=== PATIENT | male | born 1940 | race Caucasian/White ===

== ENCOUNTER 2016-05-13 06:15 | Day surgery (SDC) | payer MEDICARE ==
[2016-05-13] VITALS (11 sets, daily range): BP systolic 122–155; BP diastolic 41–57; PULSE 56–60; RESP 9–26; O2SAT 93–98
[~2016-05-13] VITALS: Ht 180.3 cm; Wt 93.7 kg
[~2016-05-13 06:15] MED LIST: ASPI-973 PO; HYG25 PO; LIP40 PO; LISI-567 PO; Lactated Ringer's 1,000 ML IV SCH; METO25TA6 PO; MULT-1018 PO
[2016-05-13] MEDS ORDERED: Ondansetron 2 mg/mL 2 mL Inj ONE (06:16)
[2016-05-13] MEDS ORDERED: Propofol 10,000 mCg/mL 20 mL Inj ONE (06:16)
[2016-05-13] MEDS ORDERED: fentaNYL-PF 50 mCg/mL 2 mL Inj ONE (06:16)
[2016-05-13] MEDS ORDERED: Lactated Ringer's 1,000 ML IV ONE (06:56)
[2016-05-13] MEDS ORDERED: HYDROcodone-APAP 5-325 mg Tablet PO PRN (07:30)
--- NOTE | 2016-05-13 08:05 | PCM.HPANE ---
Patient Data Date of Service: May 13, 2016 Surgeon Admitting Provider: Attending Provider:Kt Arguello DO Primary Care Physician:Landon Freeman MD Other Provider:Anupam Oneill Anesthesia Reason for Visit Left Cubital Tunnel Syndrome Ht/WT & BMI Height (Feet): 5 Height (Inches): 11.00 Weight (Kilograms): 93.710 Body Mass Index 28.00 Allergies Coded Allergies: No Known Allergies (Verified Allergy, Unknown, 08/17/13) Past Anesthesia History Anesthesia History: Denies:: Abnormal Airway, Anesthesia Reactions, Difficult Intubation, Fam Anesthesia Reaction, Fam Malignant Hypertherm, Malignant Hyperthermia Diabetes History Hx Diabetes?: No MRSA MRSA: No Medications Blood Thinner: Aspirin Hypertension Medication: Yes Home Meds Incl Beta Darvin: Yes (Metoprolol) Date Beta Darvin Taken: May 12, 2016 Time Beta Darvin Taken: 2129 Reported Medications Multivitamin (Multi Vitamin Daily)1 Each Tablet1 Each PO DAILY 30 Days Ref 0 05/11/16 Metoprolol Tartrate 25 Mg Ejiwzw58.5 Mg PO DAILY 30 Days Ref 0 05/11/16 Lisinopril 20 Mg Crcard66 Mg PO DAILY 30 Days Ref 0 05/11/16 Chlorthalidone 25 Mg Obfdct67 Mg PO DAILY #30 TABLET 05/11/16 Atorvastatin (Lipitor)40 Mg Lbrull39 Mg PO DAILY Ref 0 05/11/16 Aspirin 81 Mg Ofebnk60 Mg PO DAILY Ref 0 05/11/16 Discontinued Reported Medications Lisinopril 20 Mg Lsleil84 Mg PO DAILY 30 Days Ref 0 08/17/13 Atenolol 50 Mg Placmd34 Mg PO DAILY #30 TABLET Ref 0 08/17/13 History HEENT History: Positive for:: Cataracts (bilateral) Denies:: Abnormal Airway Difficult Intubation Dysphagia Hearing Problem Sinus Problem TMJ Denture Type: Partial- Upper Partial- Lower Hx of Heart Problems?: Yes Cardiovascular History: Positive for:: Coronary Artery Disease Hypertension Irregular Heartbeat (heart block) Denies:: AICD Congestive Heart Failure Heart Murmur Pacemaker Peripheral Vascular Rheumatic Fever Thrombophlebitis Other Cardiac History: hx carotid stenosis Other History/Comments Aortic dilation Hx of Respiratory Problem?: No Respiratory History: Denies:: Asthma COPD Chest Surgery Dyspnea Emphysema Oxygen Administration Pneumonia Tuberculosis Use of C-PAP Machine Use of Inhalers / NEBS Hx Neurologic Problems?: Yes Neurological History: Positive for:: CVA (per pt hx of "mini" strokes- unknown date, no residuals) Denies:: Dementia Dizziness Headaches Multiple Sclerosis Parkinson's Disease Seizures TIA Hx of GI Problems?: No Gastrointestinal History: Denies:: Cirrhosis Gall Bladder Disease Gastroesphageal Reflux Gastrointestinal Bleeding Hiatal Hernia Hx of Problems?: No Genitourinary History: Denies:: Kidney Stones Urinary Tract Infection Male Hx: Denies:: Prostate Problems Skin History: Denies:: History Skin Disorders? 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 Denies:: Blood Transfusions Hx Diabetes: No Hx Alcohol Use: YesAlcoholic Drinks Per Day: once monthlyHx Substance Use: No Smoking Status: Former Smoker Have You Smoked inLast 12 mo: No Stop/Bang S-Snoring: Do You Snore Loudly: No T-Tired: feel tired, fatigued: No O-Obsered: Observed not breath: No P-Blood Pressure: treated: Yes B- Body Mass Index > 35 kg/m2: No A- Age over 50: Yes N- Neck Large Circumference: No G- Gender Male: Yes DEVAN Total Score: 3 DEVAN Risk Assessment: Low Risk, <3 Yes Risk Assessment Category Category 1A: Patient has history of documented sleep apnea, and HAS NOT received any narcotic, sedative or anesthesia administration during this stay. Category 1B: Patient has history of documented sleep apnea, and HAS received any narcotic , sedative or anesthesia administration during this stay Category 2: Patient has SUSPECTED Obstructive Sleep Apnea, and HAS received any narcotic , sedative or anesthesia administration during this stay. Category 3: Patient has SUSPECTED Obstructive Sleep Apnea and HAS NOT received narcotic, sedative or anesthesia administration during this stay. Category 4: Outpatient in Procedural Areas with known sleep apnea or who screen positive for High Risk via the STOP/BANG questionnaire. Exam Exam Vital Signs Vital Signs Date Time Temp Pulse Resp B/P Pulse Ox O2 Delivery O2 Flow Rate FiO2 05/13/16 06:46 35.2 60 17 140/55 96 Room Air General Appearance: Alert, Oriented X3, Cooperative, No Acute Distress HEENT/AIRWAY: MP 3, Neck Movement (normal), Mouth Opening (normal), Other ( dentures) Lungs: Clear to Auscultation, Normal Air Movement Heart: Exam Unremarkable, Regular Rate/Rhythm, No Murmurs/Rubs/Gallops Meds/Labs/Diagnostics Admission Meds Current Medications Lactated Ringer's (Lr) 1,000 ml @ ud STK-MED ONCE IV Last administered on 05/13t 06:56; Start 05/13/16 at 06:56; Stop 05/13/16 at 06:57; Status DC Diagnositcs echo, nuc med scan reviewed Plan Impression Patient chart reviewed, patient interviewed and anesthestic plan with risks, benefits, and alternatives discussed, and informed consent obtained. NPO Status: 05/12@2130 ASA Physical Status: ASA3 Severe Disease Anesthetic Plan: GA Bene/Risks/Altern/Consents: Yes HP Complete Prior to Induction: Yes John Avendaño MD May 13, 2016 08:05
[2016-05-13] MEDS ORDERED: Lidocaine 1%-Epi 1:100,000 20 mL Inj INFILTRATE ONE (08:15)
[2016-05-13] MEDS ORDERED: Lactated Ringer's 1,000 ML IV SCH (08:21)
[2016-05-13] MEDS ORDERED: Lactated Ringer's 500 ML IV PRN (08:21)
[2016-05-13] MEDS ORDERED: HYDROmorphone 1 mg/mL Inj IVPUSH PRN (08:25)
[2016-05-13] MEDS ORDERED: MetoCLOpramide 5 mg/mL 2 mL Inj IVPUSH PRN (08:25)
[2016-05-13] MEDS ORDERED: Phenylephrine 10,000 mCg/mL Inj IVPUSH PRN (08:25)
[2016-05-13] MEDS ORDERED: Ondansetron 2 mg/mL 2 mL Inj IVPUSH PRN (08:25)
[2016-05-13] MEDS ORDERED: Dexamethasone 4 mg/mL Inj IVPUSH PRN (08:25)
[2016-05-13] MEDS ORDERED: fentaNYL-PF 50 mCg/mL 2 mL Inj IVPUSH PRN (08:25)
[2016-05-13] MEDS ORDERED: EPHEDrine Sulfate 50 mg/mL Inj IVPUSH PRN (08:25)
--- NOTE | 2016-05-13 09:03 | PCM.ANEP1 ---
Post Anesthesia Phase 1 PACU Phase 1 Assessment Date of Service: May 13, 2016 Vital Signs 36.2 134/51 60 14 92% RA Anesthetic Administered: GA Level of Alertness: Sleepy, easy to arouse ARREDONDO's with Equal Strength: Yes Pain: No Nausea or Vomiting: No Oxygen Delivery: Room Air Lungs: Clear to Auscultation, Normal Air Movement John Avendaño MD May 13, 2016 09:02
--- NOTE | 2016-05-13 10:22 | PCM.ANEP2 ---
Post Anesthesia Evaluation ASA/CMS Post Anesthesia Date of Service: May 13, 2016 VS in Patient's Normal Range?: Yes Resp Stable; Airway Patent?: Yes CV Function & Hydration Stable: Yes Mental Status Recovered?: Yes Pain control Satisfactory?: Yes N/V Control Satisfactory?: Yes John Avendaño MD May 13, 2016 10:22
--- NOTE | 2016-05-14 19:06 | OP ---
[address] [address] OPERATIVE REPORT PATIENT: GEORGES POST : 1940 MR#: [id number] ADMIT: 05/13/2016 JOB ID: [id number] DATE OF SURGERY: 05/13/2016 PREOPERATIVE DIAGNOSIS(ES): Left cubital tunnel syndrome. POSTOPERATIVE DIAGNOSIS(ES): Left cubital tunnel syndrome. PROCEDURE: Left cubital tunnel decompression. SURGEON: Kt Arguello DO. ANESTHESIA: General. HISTORY: The patient is a pleasant, 76-year-old male that presented to me with numbness and tingling to his ring and small finger with progressive atrophy. 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 With failure conservative treatment and the amount of atrophy that was present, I discussed with the patient the risks, benefits, and indications to proceed with a left cubital tunnel decompression versus ulnar nerve transposition pending disability of the ulnar nerve intraoperatively. He understood the risks include, but are not limited to, neurovascular injury, tendon injury, infection, failure of fixation, stiffness, persistent pain which may require further intervention. Patient had all questions answered. Consent was signed and placed in chart. PROCEDURE IN DETAIL: The patient was brought to the operative suite and placed supine on the operating table. Surgical time-out was performed. Everybody in the room was in agreement. After appropriate anesthesia was obtained, a left upper arm tourniquet was applied, and the left upper extremity was prepped and draped in sterile fashion. Left upper extremity was then exsanguinated and the tourniquet inflated to 250 mmHg. A 5 cm curvilinear incision was made along the course of the ulnar nerve within the cubital tunnel. Dissection was carried down to the cubital tunnel taking care to protect any branches of the medial antebrachial cutaneous nerves that were identified distally at the distal aspect of the incision. The ulnar nerve was identified just proximal to the cubital tunnel and decompress as far proximal to the level of the medial intermuscular septum. Dissection was carried distally and anconeus epitrochlearis was also identified which sat overlying the cubital tunnel. The anconeus epitrochlearis was also released and dissection was also carried down distally to decompress the ulnar nerve further completing the decompression by releasing deep fascia of the flexor carpi ulnaris. The patient's elbow was then brought through a full functional range of motion. No subluxation of the ulnar nerve was identified. The left elbow wound was then copiously irrigated. Subcutaneous tissues closed with Vicryl and a running nylon for the skin. The patient was then placed in a bulky soft dressing. ESTIMATED BLOOD LOSS: Less than 1 cc. COMPLICATIONS: None. DISPOSITION: The patient tolerated the procedure well. Anesthesia was reversed and the patient was transferred to the PACU for recovery. POSTOPERATIVE PLAN: The patient will follow up in the office in two weeks. We will remove the patient's sutures at that time and have her start working on range of motion and scar mobilization.
== END 2016-05-13 23:59 | disposition home or self-care (01) ==
LOC: SAS 06:15
PROVIDERS: ATTEND Orthopaedic Surgery
DX: G56.22 Lesion of ulnar nerve, left upper limb (principal); I10 Essential (primary) hypertension; D50.9 Iron deficiency anemia, unspecified; I35.1 Nonrheumatic aortic (valve) insufficiency; I25.2 Old myocardial infarction; I77.9 Disorder of arteries and arterioles, unspecified; I70.90 Unspecified atherosclerosis; I44.0 Atrioventricular block, first degree; I77.810 Thoracic aortic ectasia; Z87.891 Personal history of nicotine dependence; Z79.82 Long term (current) use of aspirin
CPT/HCPCS: 64718; J2405; J3010; J7120

== ENCOUNTER 2016-10-05 14:31 | Day surgery (SDC) | payer MEDICARE ==
[2016-10-05] VITALS (15 sets, daily range): BP systolic 90–175; BP diastolic 32–96; PULSE 68–93; RESP 15–32; O2SAT 93–100
[~2016-10-05] VITALS: Ht 180.3 cm; Wt 86.0 kg
[~2016-10-05 14:31] MED LIST changes: +CeFAZolin 2 Gm/50 mL D5W IV Premix IV SCH
[2016-10-05] MEDS ORDERED: Phenylephrine/NS 100 mCg/mL 10 mL Syringe IVPUSH ONE (14:32)
[2016-10-05] MEDS ORDERED: EPHEDrine/NS 5 mg/mL 5 mL Syringe ONE (14:32)
[2016-10-05] MEDS ORDERED: Propofol 10,000 mCg/mL 20 mL Inj ONE (14:32)
[2016-10-05] MEDS ORDERED: fentaNYL-PF 50 mCg/mL 2 mL Inj ONE (14:32)
[2016-10-05] MEDS ORDERED: Dexamethasone 4 mg/mL Inj ONE (14:32)
[2016-10-05 14:58] LABS: Mean Corpuscular Hemoglobin 27.2 pg (27.0-35.0); Mean Corpuscular Volume 84.4 fL (81-100)
[2016-10-05] MEDS ORDERED: Lactated Ringer's 1,000 ML IV ONE (15:24)
[2016-10-05] MEDS ORDERED: ASPI325T32 PO (15:46)
[2016-10-05] MEDS ORDERED: CeFAZolin 2 Gm/50 mL D5W Duplex Bag IV ONE (15:55)
[2016-10-05] MEDS ORDERED: HYDROcodone-APAP 7.5-325 mg Tablet PO PRN (18:40)
[2016-10-05] MEDS ORDERED: Lactated Ringer's 500 ML IV PRN (19:48)
[2016-10-05] MEDS ORDERED: Lactated Ringer's 1,000 ML IV SCH (19:48)
[2016-10-05] MEDS ORDERED: Ondansetron 2 mg/mL 2 mL Inj IVPUSH PRN (19:50)
[2016-10-05] MEDS ORDERED: MetoCLOpramide 5 mg/mL 2 mL Inj IVPUSH PRN (19:50)
[2016-10-05] MEDS ORDERED: HYDROmorphone 1 mg/mL Inj IVPUSH PRN (19:50)
[2016-10-05] MEDS ORDERED: Phenylephrine 10,000 mCg/mL Inj IVPUSH PRN (19:50)
[2016-10-05] MEDS ORDERED: fentaNYL-PF 50 mCg/mL 2 mL Inj IVPUSH PRN (19:50)
[2016-10-05] MEDS ORDERED: EPHEDrine Sulfate 50 mg/mL Inj IVPUSH PRN (19:50)
[2016-10-05] MEDS ORDERED: Dexamethasone 4 mg/mL Inj IVPUSH PRN (19:50)
--- NOTE | 2016-10-05 19:54 | PCM.HPANE ---
Patient Data Surgeon Admitting Provider: Attending Provider:Kt Arguello DO Primary Care Physician:Landon Freeman MD Other Provider:Anupam Oneill Anesthesia Reason for Visit Lt Elbow I&D Ht/WT & BMI Height (Feet): 5 Height (Inches): 11.00 Weight (Kilograms): 86.000 Body Mass Index 26.00 Allergies Coded Allergies: No Known Allergies (Verified Allergy, Unknown, 08/17/13) Past Anesthesia History Anesthesia History: Denies:: Abnormal Airway, Anesthesia Reactions, Difficult Intubation, Fam Anesthesia Reaction, Fam Malignant Hypertherm, Malignant Hyperthermia Diabetes History Hx Diabetes?: No MRSA MRSA: No Medications Blood Thinner: Aspirin Last Dose Blood Thinner: Oct 04, 2016 Home Meds Incl Beta Darvin: No Reported Medications Aspirin 325 Mg Ottdds398 Mg PO DAILY #1 BOTTLE 10/05/16 Multivitamin (Multi Vitamin Daily)1 Each Tablet1 Each PO DAILY 30 Days Ref 0 05/11/16 Lisinopril 20 Mg Ubvktv55 Mg PO DAILY 30 Days Ref 0 05/11/16 Chlorthalidone 25 Mg Klspel11 Mg PO DAILY #30 TABLET 05/11/16 Atorvastatin (Lipitor)40 Mg Zorcll96 Mg PO DAILY Ref 0 05/11/16 Discontinued Reported Medications Metoprolol Tartrate 25 Mg Dhrmve47.5 Mg PO DAILY 30 Days Ref 0 05/11/16 Aspirin 81 Mg Botrat65 Mg PO DAILY Ref 0 05/11/16 History History of ENT Problems?: No HEENT History: Positive for:: Cataracts (bilateral) Denies:: Abnormal Airway Difficult Intubation Dysphagia Hearing Problem Sinus Problem TMJ Denture Type: Full- Upper Partial- Lower Teeth Condition: Broken Teeth Hx of Heart Problems?: Yes Cardiovascular History: Positive for:: Hypertension Irregular Heartbeat (heart block) Denies:: AICD Congestive Heart Failure Heart Murmur Pacemaker Rheumatic Fever Thrombophlebitis Hx of Respiratory Problem?: No Respiratory History: Denies:: Asthma COPD Chest Surgery Dyspnea Emphysema Oxygen Administration Pneumonia Tuberculosis Use of C-PAP Machine Hx Neurologic Problems?: No Neurological History: Positive for:: CVA (per pt hx of "mini" strokes- unknown date, no residuals) Denies:: Dementia Dizziness Headaches Multiple Sclerosis Parkinson's Disease Seizures Hx of GI Problems?: No Hx of Problems?: No Genitourinary History: Denies:: Kidney Stones Urinary Tract Infection Male Hx: Denies:: Prostate Problems Scrotal Mass Testicular Surgery Skin History: Denies:: History Skin Disorders? Pressure Ulcers Hx Musculoskeletal Problems?: Yes Musculoskeletal History: Positive for:: Musculoskeletal Trauma (left cubital tunnel current admission problem) Denies:: Back Injury Degenerative Joint Joint Replacement Hx of Psycho/Social Problems?: No Psycho Social History: Denies:: Anxiety Bipolar Disorder Hx Depression Suicide Attempt Hx Surgeries?: Yes (04/2016 L elbow. 1967 knee and mucous cyst) Hx Any Other Health Problems?: No Other History: Positive for:: Hospitalization (elbow surgery April 2016) Denies:: Cancer Endocrine Disease Thyroid Disease History Blood Transfusions: Positive for:: Accept Blood Products? Denies:: Blood Transfusions Hx Diabetes: No Hx Alcohol Use: Yes (occasional)Hx Substance Use: No Smoking Status: Former Smoker Have You Smoked inLast 12 mo: No Stop/Bang S-Snoring: Do You Snore Loudly: No T-Tired: feel tired, fatigued: No O-Obsered: Observed not breath: No P-Blood Pressure: treated: Yes B- Body Mass Index > 35 kg/m2: No A- Age over 50: Yes N- Neck Large Circumference: No G- Gender Male: Yes DEVAN Total Score: 3 Risk Assessment Category Category 1A: Patient has history of documented sleep apnea, and HAS NOT received any narcotic, sedative or anesthesia administration during this stay. Category 1B: Patient has history of documented sleep apnea, and HAS received any narcotic , sedative or anesthesia administration during this stay Category 2: Patient has SUSPECTED Obstructive Sleep Apnea, and HAS received any narcotic , sedative or anesthesia administration during this stay. Category 3: Patient has SUSPECTED Obstructive Sleep Apnea and HAS NOT received narcotic, sedative or anesthesia administration during this stay. Category 4: Outpatient in Procedural Areas with known sleep apnea or who screen positive for High Risk via the STOP/BANG questionnaire. Exam Exam Vital Signs Vital Signs Date Time Temp Pulse Resp B/P Pulse Ox O2 Delivery O2 Flow Rate FiO2 10/05/16 19:30 36.3 68 16 91/36 99 Simple Mask 8 10/05/16 14:56 36.6 72 16 142/56 100 Room Air General Appearance: Alert, Oriented X3, Cooperative, No Acute Distress HEENT/AIRWAY: MP 1 Lungs: Normal Air Movement Heart: Regular Rate/Rhythm Meds/Labs/Diagnostics Admission Meds Current Medications Lactated Ringer's (Lr) 1,000 ml @ ud STK-MED ONCE IV Last administered on 10/05t 15:24; Start 10/05/16 at 15:24; Stop 10/05/16 at 15:25; Status DC Labs Test 10/05/16 14:35 White Blood Count 6.4th/mm3 (3.8-10.1) Red Blood Count 2.76mil/mm3 (4.40-5.80) Hemoglobin 7.5g/dL (13.8-17.2) Hematocrit 23.3% (41.0-50.0) Mean Corpuscular Volume 84.4fL (81-100) Mean Corpuscular Hemoglobin 27.2pg (27.0-35.0) Mean Corpuscular Hemoglobin Concent 32.2% (32.0-37.0) Red Cell Distribution Width 20.0% (12.3-15.4) Platelet Count 120bil/L (150-400) Erythrocyte Sedimentation Rate 79mm/hr (0-30) C-Reactive Protein 4.8mg/dL (0.0-0.5) Plan Impression Patient chart reviewed, patient interviewed and anesthestic plan with risks, benefits, and alternatives discussed, and informed consent obtained. NPO per Anesth. Guidelines: Yes ASA Physical Status: ASA3 Severe Disease Anesthetic Plan: GA Bene/Risks/Altern/Consents: Yes HP Complete Prior to Induction: Yes Jason Arceo MD Oct 05, 2016 19:54
--- NOTE | 2016-10-05 19:56 | PCM.ANEP1 ---
Post Anesthesia PACU Phase 1 Assessment Vital Signs Vital Signs Date Time Temp Pulse Resp B/P Pulse Ox O2 Delivery O2 Flow Rate FiO2 10/05/16 19:30 36.3 68 16 91/36 99 Simple Mask 8 10/05/16 14:56 36.6 72 16 142/56 100 Room Air Anesthetic Administered: GA Level of Alertness: Awake, talking Pain: No Nausea or Vomiting: Yes CV Function & Hydration Stable: Yes Airway Device: None Oxygen Delivery: Simple Mask Lungs: Clear to Auscultation, Normal Air Movement PACU Phase 2 Assessment Complications: No Follow up Care: No Patient Instructions Provided: Yes Comments Pt had epistaxis and subsequent hematemesis following emergence. Requiring supplemental oxygen but lungs clear and pt reports that he didn't aspirate any of the blood. Jason Arceo MD Oct 05, 2016 19:56
--- NOTE | 2016-10-05 20:28 | PCM.ANEP1 ---
Post Anesthesia PACU Phase 1 Assessment Vital Signs Vital Signs Date Time Temp Pulse Resp B/P Pulse Ox O2 Delivery O2 Flow Rate FiO2 10/05/16 20:00 36.3 90 20 153/72 95 Room Air 10/05/16 19:56 Simple Mask 10/05/16 19:55 84 15 137/88 95 Room Air 10/05/16 19:50 83 16 90/43 97 Room Air 10/05/16 19:45 81 16 90/35 97 Room Air 10/05/16 19:40 80 16 91/39 99 Simple Mask 8 10/05/16 19:35 70 16 90/32 99 Simple Mask 8 10/05/16 19:30 36.3 68 16 91/36 99 Simple Mask 8 10/05/16 14:56 36.6 72 16 142/56 100 Room Air Anesthetic Administered: GA Level of Alertness: Awake, talking ARREDONDO's with Equal Strength: Yes Pain: Yes (left shoulder pain) Nausea or Vomiting: No CV Function & Hydration Stable: Yes Airway Device: None Oxygen Delivery: Simple Mask Lungs: Clear to Auscultation, Normal Air Movement PACU Phase 2 Assessment Complications: No Follow up Care: No Patient Instructions Provided: Yes (re epistaxis) Comments Called to see patient at 2015 for epistaxis. Pt had one brief episode during anesthesia. No NG tube, no instrumentation of left nares. Small amounts of blood with initial suctioning after LMA removal. Pt has 4.3cm ascending aortic aneurysm; BP is 165/71; will order afrin nasal spray but wait until pain has been treated and BP in normal range before using afrin to avoid hypertensive response that might increase the very small risk of ascending aortic tear or rupture. Pt feeling better now at 2030 with less apparent epistaxis. Cheo Ortega MD Oct 05, 2016 20:28
--- NOTE | 2016-10-06 14:38 | OP ---
[address] [address] OPERATIVE REPORT PATIENT: GEORGES POST : 1940 MR#: [id number] ADMIT: 10/05/2016 JOB ID: [id number] DATE OF SURGERY: 10/05/2016 PREOPERATIVE DIAGNOSIS(ES): 1. Right hand cellulitis and abscess. 2. Right middle finger cellulitis and abscess. 3. Right ring finger cellulitis and abscess. 4. Right small finger cellulitis and abscess. POSTOPERATIVE DIAGNOSIS(ES): 1. Right hand cellulitis and abscess. 2. Right middle finger cellulitis and abscess. 3. Right ring finger cellulitis and abscess. 4. Right small finger cellulitis and abscess. PROCEDURE: 1. Incision and drainage of right hand. 2. Incision and drainage of right middle finger. 3. Incision and drainage of right ring finger. 4. Incision and drainage of right small finger. SURGEON: Kt Arguello D.O. ANESTHESIA: General. HISTORY: The patient is a 76-year-old male that presented to me for left shoulder pain secondary to glenohumeral arthritis and upon presentation it was noted he had significant swelling and multiple lesions to the dorsal aspect of his right hand. He states he scraped the top of his hand about a month ago and two weeks ago started noticing swelling and redness and drainage to the dorsum of the hand. He has tried several times to decompress the area himself. There was a significantly large area of fluctuance and skin necrosis overlying the second metacarpophalangeal joint extending to the third metacarpophalangeal joint. There is an additional lesion to the middle finger dorsal to the middle phalanx overlying the fourth metacarpophalangeal joint, a smaller lesion above the ring finger proximal phalanx neck dorsally, and finally another lesion to the dorsal ulnar aspect of the small finger at the level of the proximal phalanx. With the multiple lesions, with surrounding erythema and purulent drainage, I discussed with him proceeding with incision and drainage of the right hand of multiple fingers. He understood the risks include, but are not limited to, neurovascular injury, tendon injury, failure to resolve the infection, stiffness, and skin loss, all which may require further intervention. The patient had all questions answered. Consent was signed and placed in the chart. PROCEDURE IN DETAIL: The patient was brought to the operative suite and placed supine on the operating table. Surgical time-out was performed and everyone in the room was in agreement. After appropriate anesthesia was obtained, the right arm was elevated and tourniquet inflated to 250 mmHg. The patient's lesions were started, first from an ulnar to radial direction. The small finger wound measuring approximately a centimeter in diameter overlying the dorsal ulnar aspect of the proximal phalanx was approached first. A longitudinal incision was made directly through the lesion. Dissection was carried down to the underlying extensor tendon. Very minimal purulence emanated deep, but there was significant slough tissue to the epidermis and purulence through the dermis. Copious irrigation was then performed. Attention was then turned towards the ring finger. There was a small area to the dorsal aspect of the right ring finger measuring approximately 3 mm in diameter that was deroofed through the epidermis, revealing some underlying purulence. A longitudinal incision was made overlying the 4th metacarpophalangeal joint. Again, the epidermis was deroofed revealing purulence, but deep there was minimal purulence overlying the extensor tendon. Copious irrigation was then performed. Attention was then turned towards the middle finger overlying the dorsal aspect of the middle phalanx. This area was deroofed with purulence emanating between the epidermis and the dermis. Finally, the dorsal aspect of the hand overlying the second and partial third metacarpophalangeal joint was entered with a curvilinear incision centered to the second metacarpophalangeal joint. The epidermis was deroofed, with significant purulence emanating from the wound. This area was cultured with aerobic and anaerobic cultures, as well as Gram stain. Deep dissection dorsal to the extensor tendon revealed very minimal purulence. Copious irrigation was then performed. The wounds that were incised were loosely closed with 4-0 nylon. The hand was then prepped and covered utilizing Xeroform, 4 x 4's, an the patient placed into a well-padded well-molded volar resting splint. ESTIMATED BLOOD LOSS: 5 mL. COMPLICATIONS: None. DISPOSITION: The patient tolerated the procedure well. Anesthesia was reversed. The patient was transferred to the PACU for recovery. SPECIMENS: Right hand abscess and cellulitis with cultures taken from the dorsal to the second metacarpophalangeal joint. POSTOPERATIVE PLAN: The patient, as well as his , has been explained the postoperative plan. He is to start with twice a day dressing changes starting on postop day number one and soak the hand with half peroxide and half saline for 15 minutes twice a day. He is to change out the dressings with the supplies given. After four days they can go simply to b.i.d. dressing changes without soaking the hand with peroxide. He is to continue with the antibiotics as prescribed. I have placed a referral for Infectious Disease to have the patient follow up with. I will see him in a week for a wound recheck. He understands if he starts developing increased drainage, erythema, or further signs of worsening infection, to contact the office or present to the emergency department.
== END 2016-10-05 23:59 | disposition home or self-care (01) ==
LOC: SAS 14:31
PROVIDERS: ATTEND Orthopaedic Surgery
DX: L03.113 Cellulitis of right upper limb (principal); L03.011 Cellulitis of right finger; I10 Essential (primary) hypertension; Z87.891 Personal history of nicotine dependence; Z79.82 Long term (current) use of aspirin; Z86.73 Personal history of transient ischemic attack (TIA), and cerebral infarction without residual deficits
CPT/HCPCS: 10060; 36415; 85027; 85651; 86140; 87070; 87075; 87205; J1100; J1885; J2270; J2370; J2704; J3010; J7120